=== PATIENT | male | born 1945 | race Caucasian/White ===

== ENCOUNTER 2017-02-13 05:43 | Inpatient (IN) | payer OTHER ==
[~2017-02-13] VITALS: Ht 195.6 cm; Wt 96.9 kg
[~2017-02-13 05:43] MED LIST: BACTOIN EACH NARE; CENTTAB20 PO; FERR325C PO; NAPR500T PO
[2017-02-13] MEDS ORDERED: POVIDONE IODINE 7.5% SCRUB 118 ML BOTTLE TOPICAL SCH (06:15)
[2017-02-13] MEDS ORDERED: VANCOMYCIN 1000 MG/NS 250 ML (for <70 kg) IV SCH ×2 (06:15)
[2017-02-13] MEDS ORDERED: ceFAZolin 2 GM PREMIX 50 ML IV SCH (06:15)
[2017-02-13] MEDS ORDERED: CHLORHEXIDINE GLUCONATE 4% SOLN 120 ML BTL TOPICAL SCH (06:15)
[2017-02-13] MEDS ORDERED: DEXAMETHASONE SOD PHOS 20 MG/5 ML VIAL IV SCH (06:30)
[2017-02-13] MEDS ORDERED: HYDR-3288 PO (06:56)
[2017-02-13] MEDS ORDERED: ASPI81CH37 CHEW (06:57)
[2017-02-13] MEDS ORDERED: ENOX40P SQ (06:57)
[2017-02-13] MEDS ORDERED: ZOLPIDEM TARTRATE 5 MG TAB PO PRN (07:00)
[2017-02-13] MEDS ORDERED: ONDANSETRON HCL 4 MG/2 ML VIAL IVP PRN (07:00)
[2017-02-13] MEDS ORDERED: BISACODYL 10 MG SUPP RECTAL PRN (07:00)
[2017-02-13] MEDS ORDERED: diphenhydrAMINE HCL 50 MG/ML VIAL IV PUSH PRN (07:00)
[2017-02-13] MEDS ORDERED: MORPHINE SULFATE 4 MG/ML INJ IV PUSH PRN (07:00)
[2017-02-13] MEDS ORDERED: Post-op Orders (for Pharmacy) MISC XX ONE (07:00)
[2017-02-13] MEDS ORDERED: SODIUM CHLORIDE 0.9% FLUSH 5 ML FLUSH IVF PRN (07:00)
[2017-02-13] MEDS ORDERED: INSULIN HUMAN REGULAR 1,000 UNITS/10 ML VIAL SQ PRN (07:15)
[2017-02-13] MEDS ORDERED: POVIDONE IODINE 5% (ANTISEPSIS KIT) 4 APPLICATIONS EACH NARE PRN (07:15)
[2017-02-13] MEDS ORDERED: LACTATED RINGER'S 1000 ML IV PRN (07:15)
[2017-02-13] MEDS ORDERED: SODIUM CHLORID 0.9% 500 ML IV PRN (07:15)
[2017-02-13] MEDS ORDERED: METOPROLOL TARTRATE 25 MG TAB PO PRN (07:15)
[2017-02-13] MEDS ORDERED: CHLORHEXIDINE GLUCONATE 2 % 1 PACK (2 CLOTHS) TOPICAL PRN (07:15)
[2017-02-13] MEDS ORDERED: GENTAMICIN SULFATE 80 MG/2 ML VIAL ONE (07:20)
[2017-02-13] MEDS ORDERED: ACETAMINOPHEN 1000 MG/100 ML 100 ML IV ONE (07:33)
[2017-02-13] MEDS ORDERED: DEXAMETHASONE SOD PHOS PF 10 MG/ML VIAL ONE (07:48)
[2017-02-13] MEDS ORDERED: BUPIVACAINE LIPOSOME PF 1.3% 20 ML VIAL ONE (07:50)
[2017-02-13] MEDS ORDERED: BUPIVACAINE HCL PF 0.5% 30 ML VIAL ONE (07:50)
[2017-02-13] MEDS ORDERED: TRANEXAMIC PERI-ARTICULAR 3,000 MG/NS 100 ML P-ARTICULR SCH ×2 (08:30)
[2017-02-13] MEDS ORDERED: SODIUM CHLORIDE 0.9% IV SCH (08:30)
[2017-02-13] MEDS ORDERED: ROPIVACAINE PERI-ARTICULAR INJECTION. P-ARTICULR SCH ×5 (08:30)
[2017-02-13] MEDS ORDERED: TRANEXAMIC ACID IV SCH (08:30)
[2017-02-13] MEDS ORDERED: PROPOFOL 200 MG/20 ML AMP ONE (09:38)
[2017-02-13] MEDS ORDERED: DO NOT ADM ANY ANTICOAGULANT DRUGS PRN (10:30)
[2017-02-13] MEDS ORDERED: *morphine SULFATE 8 MG/ML PERIprocedure ONLY ONE (10:48)
[2017-02-13] MEDS: SODIUM CHLOR 0.9% 1000 ML INJ 1,000 ML IV SCH ×2 (10:55→16:54)
--- NOTE | 2017-02-13 11:21 | RADRPT ---
EXAM DATE/TIME: 02/13/2017 11:01 [place] COMPARISON: No previous studies available for comparison. INDICATIONS : Post op. MEDICAL HISTORY : None. SURGICAL HISTORY : None. ENCOUNTER: Initial ACUITY: 1 day PAIN SCORE: 0/10 LOCATION: Right knee FINDINGS: Two view examination of the right knee demonstrates no evidence of fracture or dislocation. Left knee arthroplasty. Postsurgical changes. No hardware loosening. CONCLUSION: Left knee arthroplasty. Zain Chen MD on February 13, 2017 at 11:19 Board Certified Radiologist. This report was verified electronically.
[2017-02-13] MEDS ORDERED: LIDOCAINE HCL 1% PF 5 ML AMPULE OTHER ONE (12:50)
[2017-02-13] MEDS ORDERED: ePHEDrine/NS 25 MG/5 ML SYR IV ONE (12:50)
[2017-02-13] MEDS ORDERED: PHENYLEPH/NS 1000 MCG/10 ML SYR IV ONE (12:50)
[2017-02-13] MEDS ORDERED: PROPOFOL 200 MG/20 ML AMP IV ONE (12:50)
[2017-02-13] MEDS ORDERED: ONDANSETRON HCL 4 MG/2 ML VIAL IV PUSH ONE (12:50)
[2017-02-13] MEDS ORDERED: LACTATED RINGER'S 1000 ML INJ 2,000 ML IV ONE (12:50)
--- NOTE | 2017-02-13 13:04 | HHI.DCPOC ---
Discharge Care Plan Diagnosis: (1) Primary localized osteoarthrosis, lower leg Your Health Problems Are: Difficulty with ADL Goals to Promote Your Health * To prevent worsening of your condition and complications * To maintain your health at the optimal level Directions to Meet Your Goals Take your medications as prescribed Follow your dietary instruction Follow activity as directed Keep your appointments as scheduled Take your immunizations and boosters as scheduled If your symptoms worsen call your PCP, if no PCP go to Urgent Care Center or Emergency Room Smoking is Dangerous to Your Health. Avoid second hand smoke Call the 24-hour hour crisis hotline for domestic abuse at Umesh Romero Feb 13, 2017 13:04
--- NOTE | 2017-02-13 13:05 | HHI.FF ---
Face to Face Verification Diagnosis: (1) Primary localized osteoarthrosis, lower leg Physical Therapy Gait training, Safety evaluation, Transfer training, bed to chair Knee: Total knee, Protocol: Right, Full weight bearing Right LE Weight Bearing: WB as tolerated Nursing RN: 3 days/week x 2 weeks Nursing: Gabriella teaching, Dressing changes Dressing Changes: Daily dressing change I have seen patient Murali Jose Jr Alex on 02/13/17. My clinical findings support the need for the requested home health care services because: Limited ability to care for self High risk of falls I certify that my clinical findings support that this patient is homebound because: Post-op weakness Unsteady gait/balance Umesh Romero Feb 13, 2017 13:05
[2017-02-13] MEDS ORDERED: WALKER WHEELS/F1 MIS (13:07)
[2017-02-13] MEDS ORDERED: COMMODE 3-IN-11 MIS (13:07)
[2017-02-13] MEDS ORDERED: CPMMACHINE (13:07)
--- NOTE | 2017-02-13 13:16 | MP ---
cc: TRACY MCDONALD M.D. DATE OF SURGERY: 02/13/2017 PREOPERATIVE DIAGNOSIS Right knee osteoarthritis. POSTOPERATIVE DIAGNOSIS Right knee osteoarthritis. PROCEDURE Right total knee arthroplasty. SURGEON Dr. Tracy Mcdonald. TAX INVESTIGATOR Tracy Romero PA-C. ANESTHESIA Spinal with an adductor canal femoral nerve block. ESTIMATED BLOOD LOSS 100 cc. TOURNIQUET TIME 46 minutes at 250 mmHg. COMPLICATIONS None. IMPLANTS USED DePuy Attune size 10 posterior stabilized femoral component, size 10 rotating platform tibia baseplate, size 7 mm polyethylene tibial insert, size 41 patella. JUSTIFICATION The patient is a 71-year-old male with a history of severe end-stage osteoarthritis involving the right knee. He has severe disabling pain with standing, walking ambulation, weightbearing activities and even severe pain at rest. He has failed greater than three months of nonoperative conservative treatment to include medication therapy, injections, ambulatory assisted aids, home exercise program, activity modification and weight loss. X-rays of the right knee reveal severe end-stage osteoarthritis, [id number] joint space narrowing, subchondral sclerosis, subchondral cysts, osteophyte formation with varus deformity. The patient was counseled as to the risks, benefits and alternatives to a total knee arthroplasty. The risks were discussed which include but are not limited to anesthesia, bleeding, infection, damage to nerves and blood vessels, pain, stiffness, failure of components, blood clot, pulmonary embolism and even . The patient's pain is severe. He favored the benefits over the risks and did wish to proceed with surgery. PROCEDURE IN DETAIL Written consent was obtained. The patient was identified by name, taken to the operating room and placed supine on the operating table. Spinal anesthesia was administered as well as an adductor canal femoral nerve block. The patient was given two grams of IV Ancef and one gram of IV vancomycin. A well-padded tourniquet was placed on the right thigh. The right lower extremity was prepped and draped using isopropyl alcohol, Hibiclens solution and ChloraPrep solution. After a timeout was performed an Esmarch bandage was used to exsanguinate the right lower extremity. The tourniquet was inflated to 250 mmHg. A longitudinal incision was made over the anterior aspect of the right knee. A medial parapatellar arthrotomy was performed. The patella was everted and patellar resection guide was used to resect 9 mm of patella. A size 41 mm guide was placed. Three drill holes were placed and the 41 mm trial fit well. Attention was turned to the femur where an intramedullary guide lady was placed and the distal femoral guide was set to remove 11 mm of distal femur, 5 degrees off the anatomic valgus axis alignment. An oscillating saw was used to perform the distal femoral cut. Attention was turned to the tibia where an extramedullary tibial guide was set to remove 5 mm off the lowest portion of the medial tibial plateau. The tibial guide was pinned in place and a tibial cut was performed. A 5 mm spacer block showed full extension. Attention was turned back to the femur where an AP sizing block measured a size 10. The anterior reference 3 degree external rotation guide was used to pin a size [address] The anterior, posterior and chamfer cuts were performed. A size 10 PCL box guide was pinned in place and the PCL was box cut with an oscillating saw. The medial and lateral meniscus remnants were removed as well as bone and soft tissue debris from the posterior portion of the knee. A size 10 tibia baseplate was pinned in place and the tibia was drilled and punched. The trial components were evaluated and final components cemented in place. With the current components the leg could achieve full extension to 0 degrees and flexion to 140. No evidence of tibial lift-off. Varus-valgus balance appeared appropriate and symmetric. The tourniquet was deflated. Bovie cautery was used for hemostasis. The knee was thoroughly irrigated with sterile saline pulse lavage antibiotic-impregnated solution. The arthrotomy incision was closed with #1 Vicryl suture, the subcutaneous layer with 2-0 Vicryl suture, and skin was closed with Dermabond. Sterile dressings were applied. The patient tolerated the procedure well with no intraoperative complications noted. Tracy Romero, physician assistant professor of anthropology certified, was present during the entire procedure to include patient positioning and the procedure itself. The medical necessity of the physician assistant professor of anthropology was indicated in this case due to the complexity of the procedure. He assisted with appropriate manipulation of the leg and also retraction of muscle, tendon, bone and neurovascular structures. He assisted with preparation of bone and also implantation of the prosthetic replacement. MD YAJAIRA Enamorado/SUZE /10:06 AM /12:59 PM
--- NOTE | 2017-02-13 15:20 | PD.CONS ---
HPI Service [facility] Consult Requested By Dr. Clayton Reason for Consult medical management Primary Care Physician [facility] Diagnoses: History of Present Illness This is a 71-year-old male with no past medical history except for osteoarthritis who presented with elective surgery with right total knee arthroplasty. Patient seen in the PACU. Patient had no complaints. [facility] consulted for medical management. He stated that he has no past medical history except for osteoarthritis. All other review systems reviewed and negative. Past Family Social History Allergies: Coded Allergies: oxycodone (Verified Allergy, Severe, Itching, 02/13/17) Past Medical History Osteoarthritis Past Surgical History Hernia repair and 2017 Left knee replacement in 2012 Shoulder surgery in 2001 Reported Medications Centrum Silver Ultra Mens (Multiple Vitamins W/ Minerals) 300 Mcg-600 Mcg-300 Mcg Tab 1 Tab PO DAILY Naproxen 500 Mg Tab 500 Mg PO DAILY Bactroban Nasal Oint (Mupirocin Nasal Oint) 2% Oint 1 Applic EACH NARE BID For 5 days. Iron (Ferrous Sulfate) 325 Mg Cap 325 Mg PO DAILY Active Ordered Medications Current Medications Povidone Iodine (Betadine 7.5% Scrub) 1 applic ONCE TOPICAL Last administered on 02/13/17 07:00; Start 02/13/17 at 06:15; Stop 02/16/17 at 06:14 Chlorhexidine Gluconate (Hibiclens 4% Top Soln) 1 applic ONCE TOPICAL ; Start 02/13/17 at 06:15; Stop 02/16/17 at 06:14 Cefazolin Sodium/ Dextrose 50 ml @ 100 mls/hr CROP OR GRAIN FARMWORKER IV Last administered on 02/13/17 09:12; Start 02/13/17 at 06:15; Stop 02/16/17 at 06:14 Vancomycin HCl 1000 mg/Sodium Chloride 250 ml @ 250 mls/hr CROP OR GRAIN FARMWORKER IV Last administered on 02/13/17 07:33; Start 02/13/17 at 06:15; Stop 02/16/17 at 06 :14 Tranexamic Acid 1453.5 mg/Sodium Chloride 114.535 ml @ 200 mls/ hr ONCE IV Last administered on 02/13/17 09:12; Start 02/13/17 at 08:30; Stop 02/13/17 at 14:30; Status DC Tranexamic Acid 3000 mg/Sodium Chloride 130 ml @ 260 mls/hr ONCE P-ARTICULR Last administered on 02/13/17 09:13; Start 02/13/17 at 08:30; Stop 02/13/17 at 14:30; Status DC Ropivacaine 24.63 ml/Ketorolac Tromethamine 30 mg/Epinephrine HCl 0.5 mg/ Clonidine 80 mcg/ Sodium Chloride 100 ml @ 200 mls/hr ONCE P-ARTICULR Last administered on 02/13/17 09:13; Start 02/13/17 at 08:30; Stop 02/13/17 at 14 :30; Status DC Dexamethasone Sodium Phosphate (Decadron Inj) 10 mg CROP OR GRAIN FARMWORKER IV Last administered on 02/13/17 07:14; Start 02/13/17 at 06:30; Stop 02/13/17 at 23 :59 Ferrous Sulfate (Ferrous Sulfate) 325 mg DAILY PO ; Start 02/13/17 at 09:00 Sodium Chloride 1,000 ml @ 100 mls/hr Q10H IV Last administered on 02/13/17 10:55; Start 02/13/17 at 06:54 IV Flush (NS Flush) 2 ml UNSCH PRN IVF FLUSH AFTER USING IV ACCESS; Start at 07:00 IV Flush (NS Flush) 2 ml BID IVF ; Start 02/13/17 at 09:00 Cefazolin Sodium 1000 mg/Sodium Chloride 100 ml @ 200 mls/hr Q6H IV ; Start at 15:00; Stop 02/14/17 at 03:29 Miscellaneous Information (Post-op Orders (for Pharmacy)) STAT ONCE XX ; Start 02/13/17 at 07:00; Stop 02/13/17 at 10:44; Status DC Enoxaparin Sodium (Lovenox Inj) 40 mg Q24H SQ ; Start 02/14/17 at 08:00 Morphine Sulfate (Morphine Inj) 3 mg Q3H PRN IV PUSH Pain >7 when off ATM TECHNICIAN; Start 02/13/17 at 07:00 Acetaminophen/ Hydrocodone Bitart (Seneca 7.5-325 Mg) 1 tab Q4H PRN PO PAIN LESS THAN 5 ON SCALE; Start 02/13/17 at 07:00 Acetaminophen/ Hydrocodone Bitart (Seneca 7.5-325 Mg) 2 tab Q4H PRN PO PAIN SCALE 5 TO 10; Start 02/13/17 at 07:00 Multivitamins/ Minerals Therapeutic (Theragran M Tab) 1 tab BID PO ; Start at 21:00; Stop 04/15/17 at 20:59 Ondansetron HCl (Zofran Inj) 4 mg Q6H PRN IVP NAUSEA OR VOMITING; Start at 07:00 Docusate Sodium (Colace) 100 mg BID PO ; Start 02/14/17 at 21:00 Zolpidem Tartrate (Ambien) 5 mg HS PRN PO SLEEP; Start 02/13/17 at 07:00 Bisacodyl (Dulcolax Supp) 10 mg DAILY PRN RECTAL CONSTIPATION; Start 02/13/17 at 07:00 Diphenhydramine HCl (Benadryl Inj) 25 mg Q6H PRN IV PUSH ITCHING; Start at 07:00 Lactated Ringer's 1,000 ml @ 30 mls/hr Q24H PRN IV SEE LABEL COMMENTS Last administered on 02/13/17 07:10; Start 02/13/17 at 07:15; Stop 02/16/17 at 07 :14 Sodium Chloride 500 ml @ 30 mls/hr [id number] PRN IV SEE LABEL COMMENTS; Start at 07:15; Stop 02/16/17 at 07:14 Metoprolol Tartrate (Lopressor) 25 mg CROP OR GRAIN FARMWORKER PRN PO SEE LABEL COMMENTS; Start 02/13/17 at 07:15; Stop 02/16/17 at 07:14 Povidone Iodine (Betadine 5% Antisepsis Kit) 1 applic CROP OR GRAIN FARMWORKER PRN EACH NARE SEE LABEL COMMENTS Last administered on 02/13/17 07:34; Start 02/13/17 at 07: 15; Stop 02/16/17 at 07:14 Chlorhexidine Gluconate (Chlorhexidine 2% Cloth) 3 pack CROP OR GRAIN FARMWORKER PRN TOPICAL SEE LABEL COMMENTS; Start 02/13/17 at 07:15; Stop 02/16/17 at 07:14 Insulin Human Regular (NovoLIN R INJ) See Protocol Table ... CROP OR GRAIN FARMWORKER PRN SQ SEE PROTOCOL TABLE; Start 02/13/17 at 07:15; Stop 02/16/17 at 07:14 Gentamicin Sulfate (Gentamicin Inj) 240 mg STK-MED ONCE .ROUTE Last administered on 02/12/17 09:09; Start 02/13/17 at 07:20; Stop 02/13/17 at 07 :21; Status DC Acetaminophen 100 ml @ As Directed STK-MED ONCE IV ; Start 02/13/17 at 07:33; Stop 02/13/17 at 07:34; Status DC Dexamethasone Sodium Phosphate (Decadron Pf Inj) 10 mg STK-MED ONCE .ROUTE ; Start 02/13/17 at 07:48; Stop 02/13/17 at 07:49; Status DC Bupivacaine Liposome (Exparel Pf 1.3% Inj) 20 ml STK-MED ONCE .ROUTE ; Start at 07:50; Stop 02/13/17 at 07:51; Status DC Bupivacaine HCl (Marcaine Pf 0.5% Inj) 30 ml STK-MED ONCE .ROUTE ; Start at 07:50; Stop 02/13/17 at 07:51; Status DC Propofol (Diprivan 200 Mg/20 ml Inj) 200 mg STK-MED ONCE .ROUTE ; Start at 09:38; Stop 02/13/17 at 09:39; Status DC Morphine Sulfate (*morphine INJ PERIprocedure ONLY) 8 mg STK-MED ONCE .ROUTE Last administered on 02/13/17t 10:47; Start 02/13/17 at 10:48; Stop 02/13/17 at 10:49; Status DC Miscellaneous Information ALL NURSING DEPARTME... UNSCH PRN .XX SEE LABEL COMMENTS; Start 02/13/17 at 10:30; Stop 02/14/17 at 10:29 Family History Medical history of diabetes. Maternal uncle with juvenile type 1 diabetes. Maternal uncle with rheumatoid arthritis. Social History Family to home is very independent. Denies any tobacco or illicit drug use. Usually drinks 1 drink per day but stopped 4 weeks ago before surgery. Physical Exam Vital Signs Vital Signs Date Time Temp Pulse Resp B/P (MAP) Pulse Ox O2 Delivery O2 Flow Rate FiO2 02/13/17 14:00 79 16 113/60 (77) 96 02/13/17 13:00 78 16 119/58 (78) 97 02/13/17 12:00 81 16 116/67 (83) 97 02/13/17 11:30 70 16 126/71 (89) 98 02/13/17 11:15 77 20 123/66 (85) 96 02/13/17 11:00 72 18 119/65 (83) 96 02/13/17 10:45 72 20 112/60 (77) 96 02/13/17 10:30 75 21 124/68 (86) 94 02/13/17 10:28 97.6 72 20 115/58 (77) 97 Room Air 02/13/17 07:30 98.0 56 20 134/63 (86) 98 Physical Exam GENERAL: This is a well-nourished, well-developed patient, in no apparent distress. SKIN: No rashes, ecchymoses or lesions. Cool and dry. HEAD: Atraumatic. Normocephalic. No temporal or scalp tenderness. EYES: Pupils equal round and reactive. Extraocular motions intact. No scleral icterus. No injection or drainage. ENT: Nose without bleeding, purulent drainage or septal hematoma. Throat without erythema, tonsillar hypertrophy or exudate. Uvula midline. Airway patent. NECK: Trachea midline. No JVD or lymphadenopathy. Supple, nontender, no meningeal signs. CARDIOVASCULAR: Regular rate and rhythm without murmurs, gallops, or rubs. RESPIRATORY: Clear to auscultation. Breath sounds equal bilaterally. No wheezes , rales, or rhonchi. GASTROINTESTINAL: Abdomen soft, non-tender, nondistended. No hepato-splenomegaly , or palpable masses. No guarding. MUSCULOSKELETAL:right knee in bandages and elevated. NEUROLOGICAL: Awake and alert. Cranial nerves II through XII intact. Motor and sensory grossly within normal limits. Five out of 5 muscle strength in all muscle groups. Normal speech. Imaging Last Impressions Knee X-Ray 02/13/17 0654 Signed Impressions: Service Date/Time: Monday, February 13, 2017 11:01 - CONCLUSION: Left knee arthroplasty. Zain Chen MD Assessment and Plan Assessment and Plan 71-year-old male presented with elective right knee arthroplasty Severe right knee osteoarthritis -Status post right knee arthroplasty -Management per orthopedic. DVT prophylaxis -Lovenox Discussed Condition With patient Baylee Gilmore MD Feb 13, 2017 15:20
[2017-02-13 16:25] VITALS: BP 118/65; PULSE 74; RESP 16; TEMP 98; O2SAT 92
[2017-02-13 17:46] VITALS: O2SAT 97
[2017-02-13 20:35] VITALS: BP 127/67; PULSE 86; RESP 18; TEMP 98.3; O2SAT 97
[2017-02-13] MEDS: ACETAMINOPHEN/HYDROcodone 325 MG/7.5 MG TAB PO PRN (20:47)
[2017-02-13] MEDS: SODIUM CHLORIDE 0.9% FLUSH 5 ML FLUSH IVF SCH (20:54)
[2017-02-14 00:10] VITALS: BP 108/61; PULSE 84; RESP 18; TEMP 96.7; O2SAT 96
[2017-02-14] MEDS: ACETAMINOPHEN/HYDROcodone 325 MG/7.5 MG TAB PO PRN ×4 (02:25→15:15)
[2017-02-14] MEDS: SODIUM CHLOR 0.9% 1000 ML INJ 1,000 ML IV SCH ×2 (02:54→12:54)
[2017-02-14 03:24] VITALS: BP 116/67; PULSE 85; RESP 18; TEMP 96.4; O2SAT 97
[2017-02-14 07:11] LABS: HEMATOCRIT 35.7 % (39.0-51.0); MEAN CELL VOLUME 99.1 FL (80.0-100.0); MEAN CORPUSCULAR HEMOGLOBIN 34.2 PG (27.0-34.0); MEAN CORPUSCULAR HGB CONC 34.5 % (32.0-36.0); PLATELET COUNT 154 TH/MM3 (150-450); RED CELL DISTRIBUTION WIDTH 12.3 % (11.6-17.2); REVIEW FLAG FINAL; WHITE BLOOD COUNT 10.5 TH/MM3 (4.0-11.0)
[2017-02-14 07:34] LABS: BICARBONATE 26.3 MEQ/L (21.0-32.0); POTASSIUM 3.9 MEQ/L (3.5-5.1)
[2017-02-14 07:51] VITALS: BP 121/72; PULSE 59; RESP 19; TEMP 96.5; O2SAT 98
[2017-02-14] MEDS ORDERED: ENOXAPARIN SODIUM 40 MG/0.4 ML SYRINGE SQ SCH ×2 (08:00→10:00)
--- NOTE | 2017-02-14 08:11 | PD.ORT.PN ---
Subjective Post Op Day #: 1 Subjective Remarks pain under control. Objective Vitals Vital Signs Date Time Temp Pulse Resp B/P (MAP) Pulse Ox O2 Delivery O2 Flow Rate FiO2 02/14/17 07:51 96.5 59 19 121/72 (88) 98 02/14/17 03:24 96.4 85 18 116/67 (83) 97 02/14/17 00:10 96.7 84 18 108/61 (77) 96 02/13/17 20:35 98.3 86 18 127/67 (87) 97 02/13/17 17:46 97 21 02/13/17 16:25 98.0 74 16 118/65 (82) 92 02/13/17 16:00 97.6 69 19 116/58 (77) 96 Nasal Cannula 2 02/13/17 15:00 71 18 107/55 (72) 95 02/13/17 14:00 79 16 113/60 (77) 96 02/13/17 13:00 78 16 119/58 (78) 97 02/13/17 12:00 81 16 116/67 (83) 97 02/13/17 11:30 70 16 126/71 (89) 98 02/13/17 11:15 77 20 123/66 (85) 96 02/13/17 11:00 72 18 119/65 (83) 96 02/13/17 10:45 72 20 112/60 (77) 96 02/13/17 10:30 75 21 124/68 (86) 94 02/13/17 10:28 97.6 72 20 115/58 (77) 97 Room Air I/O 02/13/17 02/13/17 02/13/17 02/14/17 02/14/17 02/14/17 07:00 15:00 23:00 07:00 15:00 23:00 Intake Total 2900 ml 1679 ml 1191 ml Output Total 200 ml 3425 ml 1825 ml Balance 2700 ml -1746 ml -634 ml Intake Oral 400 ml 480 ml 720 ml IV Total 1199 ml 471 ml Other 2500 ml Output Urine Total 3425 ml 1825 ml Estimated Blood Loss 200 ml # Bowel Movements 0 0 Result Diagram: 02/14/1746 02/14/17545 Objective Remarks in bed, nad, using cpm incision no erythema, no drainage neg homans nvi Assessment & Plan Ortho Post Op Day #: 1 Problem List: Assessment and Plan s/p R TKA wbat daily dressing changes loveearlene d/c planning home with [facility] and pt - cleared today if does well with PT rx in chart f/up dr. barrett 2 weeks Umesh Romero Feb 14, 2017 08:11
[2017-02-14] MEDS: SODIUM CHLORIDE 0.9% FLUSH 5 ML FLUSH IVF SCH (09:00)
[2017-02-14] MEDS: FERROUS SULFATE 325 MG (65 MG ELEMENTAL IRON) TAB PO SCH ×2 (09:00→10:27)
[2017-02-14 09:17] VITALS: O2SAT 95
[2017-02-14 11:37] VITALS: BP 140/73; PULSE 70; RESP 19; TEMP 96.6; O2SAT 97
[2017-02-14] MEDS ORDERED: MULTIVITAMINS/MINERALS THERAPEUTIC TAB PO SCH (21:00)
[2017-02-14] MEDS ORDERED: DOCUSATE SODIUM 100 MG CAP PO SCH (21:00)
--- NOTE | 2017-02-15 08:41 | MD ---
cc: TRACY MCDONALD M.D. ADMISSION DATE: 02/13/2017 DISCHARGE DATE: 02/14/2017 ADMITTING DIAGNOSIS Severe degenerative osteoarthritis, right knee. DISCHARGE DIAGNOSIS Severe degenerative osteoarthritis, right knee. HISTORY OF PRESENT ILLNESS Mr. Johnson is a 71-year-old female who presented to the [facility] for evaluation by Dr. Tracy Mcdonald regarding his severe and progressive right knee pain. The patient states it has been bothering him for greater than a one-year duration for which he has received treatment for this ailment. He notes his pain is aggravated by weightbearing activities and he has no alleviating factors at this point in time, although in the past she has tried medications, bracing, physical therapy, home exercise program and corticosteroid injections without relief of symptoms. She does have x-ray evidence of severe degenerative osteoarthritis of the right knee. While in the office the patient was counseled on his diagnosis and treatment options. Risks, benefits and indications were all discussed in great detail. The patient did elect to proceed with surgical intervention to include a right total knee arthroplasty. Date of surgery 02/13/2017: Right total knee arthroplasty. POST-OP After surgery the patient was admitted to [facility] where he received appropriate medical management, pain control, DVT prophylaxis, as well as physical therapy. DISCHARGE Once being discharged from the hospital the patient is cleared to go home where he will receive home health care and home physical therapy. He is in stable condition. He may weight bear as tolerated. The patient is to receive daily dressing changes and has been instructed on proper wound care management. He has been provided prescriptions for pain control as well as DVT prophylaxis medication. He has also been provided a follow-up appointment in approximately 2 weeks from his date of surgery. The patient has asked appropriate questions which have been answered. The patient has been discharged. MD YAJAIRA Enamorado/SUZE /8:11 AM 8:34 AM
== END 2017-02-14 15:26 | disposition home health service (06) | DRG 470 ==
LOC: HSDI 05:43 → N06A 16:14
PROVIDERS: ADMIT Orthopaedic Surgery Sports Medicine; ATTEND Orthopaedic Surgery Sports Medicine
PROC: 3E0T3BZ Introduction of Anesthetic Agent into Peripheral Nerves and Plexi, Percutaneous Approach (ICD-10-PCS; 2017-02-13)
PROC: 0SRC0J9 Replacement of Right Knee Joint with Synthetic Substitute, Cemented, Open Approach (ICD-10-PCS; principal; 2017-02-13 08:10)
DX: M17.11 Unilateral primary osteoarthritis, right knee (principal); Z96.652 Presence of left artificial knee joint
CPT/HCPCS: 73560; 80048; 85027; 86850; 86900; 86901; 86920; 86921; 86922; 94150; C1776; C9290; J0131; J0690; J0735; J1100; J1580; J1650; J1885; J2270; J2370; J2405; J2795; J3370; J7030; J7050; J7120; L1830